=== PATIENT | female | born 1995 | race Caucasian/White ===

== ENCOUNTER 2016-12-06 19:34 | Emergency (ER) | payer OTHER ==
[~2016-12-06] VITALS: Wt 62.0 kg
[2016-12-06] MEDS ORDERED: ACET1TAB40 PO (21:56)
[2016-12-06] MEDS ORDERED: ACYC800T57 PO (21:56)
--- NOTE | 2016-12-06 22:42 | ERD ---
ER Documentation Chief Complaint Date/Time DATE: 12/06/16 TIME: 22:35 Chief Complaint Rectal pain possible abscess x2 weeks HPI 21-year-old female complaining of pain in her rectal area 2 weeks. Patient reports feeling "bumps", and the "popped" 2 weeks ago. The pain is burning- like. Patient reports bleeding from the lesion. She has subjective fever 2 weeks ago at the onset of the symptoms. Patient is sexually active, have her first and only partner for the last 3 months. Patient stated that her partner was tested for STD 1 year ago, was negative. LMP 11/30/2016. Patient went to her clinic today and mentioned her symptoms to the clinician. She was given prescription of diclofenac for the pain. Patient stated that she did not receive a exam at the clinic. She did receive a call from the clinic later this evening and told her to come to the ER. Denies fever at this time. Denies vaginal or labial lesions. Denies vaginal discharge. Denies dysuria. ROS All systems reviewed and are negative except as per history of present illness. Medications Home Meds Active Scripts Acyclovir* (Zovirax*) 800 Mg Tablet, 800 MG PO 5 TIMES DAILY for 7 Days, TAB Prov:MIRELLA CONTRERAS. POLITICAL SCIENCE PROFESSOR 12/06/16 Acetaminophen with Codeine (Acetaminophen-Cod #3 Tablet) 1 Each Tablet, 1 TAB PO Q6H Y for PAIN, #15 TAB Prov:MIRELLA CONTRERAS. POLITICAL SCIENCE PROFESSOR 12/06/16 Allergies Allergies: Coded Allergies: No Known Allergy (Unverified , 12/06/16) PMhx/Soc Medical and Surgical Hx: pt denies Medical Hx, pt denies Surgical Hx Hx Alcohol Use: No Hx Substance Use: No Hx Tobacco Use: No Smoking Status: Never smoker Physical Exam Vitals Vital Signs Date Time Temp Pulse Resp B/P Pulse Ox O2 Delivery O2 Flow Rate FiO2 12/06/16 19:47 98.6 82 20 120/59 98 Physical Exam General: Well-developed, well-nourished, conscious and coherent, in no distress Skin: Warm and dry without rash, good texture and turgor Head: Normocephalic without evidence of trauma Eyes: Sclera and conjunctivae normal; pupils equal, round, and reactive to light; extraocular movements are intact Neck: Supple without meningismus or adenopathy. Carotids are equal. Trachea midline. No bruits or JVD Chest: Normal AP diameter. Good expansion without retractions. Nontender. Lungs are clear to auscultate bilaterally with good tidal volume Heart: Regular rate and rhythm. No murmur, rub, or gallops heard Abdomen: Soft and nontender without masses, guarding, or rebound. Bowel sounds are active. No hepatosplenomegaly Rectal: Discrete vesicular lesions noted surrounding the anus on the erythematous bases, tender. Extremities: Full range of motion. Good strength bilaterally. No clubbing, cyanosis, or edema. Peripheral pulses are intact. Sensation intact Neuro: Alert and oriented 4, GCS 15. Cranial nerves grossly intact. Motor and sensory exams nonfocal. Moves all extremities. Speech clear. Gait normal Procedures/MDM Well-appearing 21-year-old female presented ED with burning vesicular lesions in the perianal area. The lesions has appearance of herpes simplex outbreak. I doubt cellulitis or abscess. Patient is educated on safe sex practices. Patient appears well, stable for discharge and outpatient management. Medical decision making shared with patient and family. Education provided to patient and family. Patient and family expressed understanding of the plan. Medications on discharge: Tylenol No. 3, acyclovir. Follow-up: Primary care provider in 2-3 days or return to ED if worse. Disclaimer: Inadvertent spelling and grammatical errors are likely due to EHR/ dictation software use and do not reflect on the overall quality of patient care. Also, please note that the electronic time recorded on this note does not necessarily reflect the actual time of the patient encounter. Departure Diagnosis: Primary Impression: Herpes simplex Condition: Stable Patient Instructions: Herpes Genitalis, Hsv: Type Ii Referrals: [facility] YOU HAVE RECEIVED A MEDICAL SCREENING EXAM AND THE RESULTS INDICATE THAT YOU DO NOT HAVE A CONDITION THAT REQUIRES URGENT TREATMENT IN THE EMERGENCY DEPARTMENT. FURTHER EVALUATION AND TREATMENT OF YOUR CONDITION CAN WAIT UNTIL YOU ARE SEEN IN YOUR DOCTORS OFFICE WITHIN THE NEXT 1-2 DAYS. IT IS YOUR RESPONSIBILITY TO MAKE AN APPOINTMENT FOR FOLOW-UP CARE. IF YOU HAVE A PRIMARY DOCTOR --you should call your primary doctor and schedule an appointment IF YOU DO NOT HAVE A PRIMARY DOCTOR YOU CAN CALL OUR PHYSICIAN REFERRAL HOTLINE AT IF YOU CAN NOT AFFORD TO SEE A PHYSICIAN YOU CAN CHOSE FROM THE FOLLOWING [facility] [address] [facility] [address] [facility] [address] [facility] [address] [facility] [facility] [address] [facility]. [facility] [address] Additional Instructions: Call your primary care doctor TOMORROW for an appointment during the next 2-3 days.See the doctor sooner or return here if your condition worsens before your appointment time. MIRELLA CONTRERAS NP Dec 06, 2016 22:42
== END 2016-12-06 22:07 | disposition home or self-care (01) ==
LOC: FTE 19:34
DX: B00.9 Herpesviral infection, unspecified (principal)
CPT/HCPCS: 99283

== ENCOUNTER 2017-01-25 10:07 | Emergency (ER) | payer OTHER ==
[~2017-01-25] VITALS: Ht 157.5 cm; Wt 62.5 kg
[~2017-01-25 10:07] MED LIST: ACET1TAB40 PO; ACYC800T57 PO
[2017-01-25 10:10] VITALS: Ht 157.5 cm; Wt 62.5 kg
[2017-01-25] MEDS ORDERED: NAPR-260 PO (10:40)
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
[2017-01-25] MEDS ORDERED: ACETAMINOPHEN 325 MG TAB PO ONE (11:00)
[2017-01-25] MEDS ORDERED: IBUPROFEN 600 MG TAB PO ONE (11:00)
== END 2017-01-25 11:33 | disposition home or self-care (01) ==
LOC: FTE 10:07
DX: S59.912A Unspecified injury of left forearm, initial encounter (principal); V49.40XA Driver injured in collision with unspecified motor vehicles in traffic accident, initial encounter
CPT/HCPCS: Z7502; Z7610; 99283

== ENCOUNTER 2017-10-31 15:38 | Emergency (ER) | END 2017-10-31 18:32 | disposition home or self-care (01) ==

== ENCOUNTER 2018-03-03 09:14 | Emergency (ER) | END 2018-03-03 11:00 | disposition home or self-care (01) ==